=== PATIENT | female | born 1990 | race Caucasian/White ===

== ENCOUNTER 2023-01-31 18:12 | Observation (INO) ==
[2023-01-31] MEDS ORDERED: SODIUM CHLORIDE 0.9% 1000ML 1,000 ML IV ONE (18:34)
--- NOTE | 2023-01-31 18:41 | Emergency Department Note ---
History of Present Illness General Chief complaint: Abdominal Pain Stated complaint: UPPER ABDOMINAL PAIN Time Seen by Provider: 01/31/23 18:18 Source: patient, family (I talked her fianc who is also at the bedside) and RN notes reviewed Mode of arrival: ambulatory Limitations: no limitations History of Present Illness Maximum Pain Intensity: 7 This patient is a 32-year-old female comes in with upper abdominal pain. She says she woke up this morning took omeprazole and Gas-X and its persisted throughout the day got worse she points to the most of the upper abdomen but it does hurt in the lower abdomen as well. No fever occasional nausea but no vomiting or diarrhea she had some [place] food last night but said there was no GI issues otherwise and nobody else is sick. Nothing makes it better it is worse if she wears tight close. Sometimes it hurts worse with movement. No chest pain or shortness of breath. no sick contact.s she does have an IUD and denies vaginal bleeding or discharge denies pain with intercourse. no dysuria or hematuria. No trauma or injury. Home Medications Medication Instructions Recorded Confirmed Type bupropion HCl 150 mg tablet,12 hr 150 mg PO BID 01/31/23 01/31/23 History sustained-release levothyroxine 125 mcg tablet See Rx Instructions .Route .COMPLEX 01/31/23 01/31/23 History lisinopril 5 mg tablet 5 mg PO QAM 01/31/23 01/31/23 History Allergies Allergy/AdvReac Type Severity Reaction Status Date / Time No Known Allergies Allergy Unverified 01/31/23 18:20 Past Med/Surg History Medical History (Updated 01/31/23 @ 21:13 by Harpal Rahman MD) Depression Hypertension Hypothyroidism Obesity Social History Smoking Status: Never smoker Feels Safe at Home: Yes Immunizations: Past medical historydepression which he says is stable no suicidal ideations or overdose. Denies history of GI issues or surgery Social historyshe does not smoke -she quit. Does not drink alcohol. She is a nurse Review of Systems A total of 10 systems reviewed and were otherwise negative Physical Exam Vital Signs Vital Signs - 24 hr 01/31/23 18:14 01/31/23 19:43 01/31/23 20:00 Temperature 36.2 C L Temperature Source Skin Pulse Rate 102 H 101 H Pulse Rate [Finger] 84 Respiratory Rate 20 20 20 Respiratory Effort / Characteristics Non-Labored Spontaneous Non-Labored Respiratory Depth Normal Normal Respiratory Pattern Regular Regular Blood Pressure 149/85 H Blood Pressure [Left Arm] 153/91 H Blood Pressure Mean 106 Blood Pressure Mean [Left Arm] 111 Blood Pressure Position [Left Arm] Sitting Pulse Oximetry 99 99 100 Oxygen Delivery Method Room Air Room Air Room Air Sepsis Recent Fever Within 48 Hours No Sepsis New/Unexplained Change in Mental Status N/A Sepsis Action Taken by Nursing No Action Required General: Well developed well nourished young female who appears mildly uncomfortable but in no acute distress, breathing comfortably on room air. No rmal speech HEENT: Normal cephalic atraumatic. Pupils are equal round and reactive to light. Extraocular movements are intact. Oropharynx is pink with moist mucous membranes. No swelling of the mouth lips or tongue. Neck: Supple with a midline trachea. No meningeal signs or stiffness, no JVD or bruits. No Stridor. Chest: Clear to auscultation bilaterally. No wheezes or rhonchi. No increased work of breathing. Heart: Regular rate and rhythm without murmurs or gallops. Abdomen: Soft moderately tender in the right upper abdomen also centrally in the lower abdomen. She has some mild tenderness in the epigastric area. She does seem diffusely tender but more so in the areas listed .nondistended without rebound guarding or rigidity. Extremities: No cyanosis clubbing or edema. No calf tenderness or assymetry Spine/Back. Non tender to palpation. No CVA tenderness Skin: Good turgor without rashes. Neurologic exam: Nonfocal, motor and sensation are intact and symmetrical throughout. Course Administered Medications Discontinued Medications Bupivacaine HCl (Bupivacaine 0.5 % 5 Mg/1 Ml Mpf 30ml Vial) Confirm Administered Dose 30 ml .ROUTE .STK-MED ONE Stop: 01/31/23 21:14 Last Admin: 01/31/23 22:21 Dose: 10 ml Documented By: [facility] Sodium Chloride (Nss 1000ml) 1,000 mls @ 999 mls/hr IV .Q1H1M ONE Stop: 01/31/23 19:34 Last Infusion: 01/31/23 21:04 Dose: 0 mls/hr Documented By: Admin: 01/31/23 18:45 Dose: 999 mls/hr Documented By: FRANCESCO Cefoxitin Sodium 2,000 mg/ (Dextrose) 60 mls @ 100 mls/hr IV NOW STA Stop: 01/31/23 21:45 Last Admin: 01/31/23 22:00 Dose: 100 mls/hr Documented By: KRZYSZTOF Acetaminophen (Ofirmev) 1,000 mg in 100 mls @ 400 mls/hr IV NOW ONE Stop: 01/31/23 22:45 Last Admin: 01/31/23 23:52 Dose: 400 mls/hr Documented By: MARTIN Ioversol (Optiray 350 100ml) 89 ml IV ONCE ONE Stop: 01/31/23 19:44 Last Admin: 01/31/23 19:44 Dose: 89 ml Documented By: DAYTON Ketorolac Tromethamine (Ketorolac Tromethamine 15 Mg/Ml Vial) 10 mg IV NOW ONE Stop: 01/31/23 18:43 Last Admin: 01/31/23 18:46 Dose: 10 mg Documented By: MG Co-signed By: SCOTT Ondansetron HCl (Ondansetron Inj 2 Mg/Ml 2 Ml Vial) 4 mg IV NOW STA Stop: 01/31/23 18:43 Last Admin: 01/31/23 18:46 Dose: 4 mg Documented By: MG Co-signed By: SCOTT Medical Decision Making Differential Diagnosis Gallbladder disease, pancreatitis, appendicitis, , colitis, intra- abdominal process, infection, surgical disease Medical Records Attestation: I reviewed the patient's medical records. Home Medications Current Medication List: was personally reviewed by wi Laboratory Data Attestation: I reviewed the patient's lab results. 01/31/23 18:30 01/31/23 18:30 Lab Results 01/31/23 01/31/23 01/31/23 Range/Units 18:30 18:30 18:30 WBC 12.42 H (4.8-10.8) K/ul RBC 4.65 (4.20-5.40) M/uL Hgb 13.7 (12.0-16.0) g/dl Hct 40.1 (37.0-47.0) % MCV 86.2 (80.0-100.0) fL MCH 29.5 (25.0-34.0) pg MCHC 34.2 (32.0-36.0) g/dL RDW Std Deviation 39.7 (36.4-46.3) fL RDW Coeff of Ramon 12.7 (11.5-14.5) % Plt Count 237 (130-400) K/uL MPV 11.5 (9.4-12.4) fL Immature Gran % (Auto) 0.3 % Neut % (Auto) 82.1 % Lymph % (Auto) 11.9 % [place] % (Auto) 5.3 % Eos % (Auto) 0.1 % Baso % (Auto) 0.3 % Neut # (Auto) 10.19 H (1.40-6.50) K/uL Lymph # (Auto) 1.48 (1.2-3.4) K/uL [place] # (Auto) 0.66 H (0.11-0.59) K/uL Eos # (Auto) 0.01 (0-0.50) K/uL Baso # (Auto) 0.04 (0-0.2) K/uL Immature Gran # (Auto) 0.04 (0.01-0.20) K/uL Sodium 135 L (136-145) mmol/L Potassium 3.7 (3.5-5.1) mmol/L Chloride 103 (98-107) mmol/L Carbon Dioxide 27 (21-32) mmol/L Anion Gap 5 (3-11) BUN 12 (6-23) mg/dl Creatinine 0.91 (0.6-1.2) mg/dl Est Cr Clr Drug Dosing 110.8 ml/min Est GFR ( Amer) 95.4 ml/min Est GFR (Non-Af Amer) 82.3 ml/min BUN/Creatinine Ratio 13.2 (10-20) Glucose 92 (70-99(Fasting)) mg/dl Calcium 9.3 (8.5-10.1) mg/dl Total Bilirubin 0.5 (0.2-1.0) mg/dl AST 15 (13-39) U/L ALT 12 (7-52) U/L Alkaline Phosphatase 73 (34-104) U/L Total Protein 7.5 (6.0-8.3) gm/dl Albumin 4.6 (3.4-5.0) gm/dl Globulin 2.9 (2.5-4.0) gm/dl Albumin/Globulin Ratio 1.6 (0.9-2) Lipase 12 (11-82) U/L Urine Color Yellow Urine Appearance Clear (Clear) Urine pH 6.0 (4.5-7.5) Ur Specific [place] 1.010 (1.000-1.030) Urine Protein Negative (Negative) Urine Glucose (UA) Negative (Negative) Urine Ketones Trace H (Negative) Urine Blood Negative (Negative) Urine Nitrite Negative (Negative) Urine Bilirubin Negative (Negative) Urine Urobilinogen Negative (Negative) Ur Leukocyte Esterase 1+ H (Negative) Urine WBC (Auto) 10-30 H (0-5) /hpf Urine RBC (Auto) 5-10 H (0-4) /hpf U Hyaline Cast (Auto) 0 (0-5) /lpf U Epithel Cells (Auto) >30 H (0-5) /lpf Urine Bacteria (Auto) 2+ H (Negative) POC Ur Test (NEG) 01/31/23 Range/Units 18:30 WBC (4.8-10.8) K/ul RBC (4.20-5.40) M/uL Hgb (12.0-16.0) g/dl Hct (37.0-47.0) % MCV (80.0-100.0) fL MCH (25.0-34.0) pg MCHC (32.0-36.0) g/dL RDW Std Deviation (36.4-46.3) fL RDW Coeff of Ramon (11.5-14.5) % Plt Count (130-400) K/uL MPV (9.4-12.4) fL Immature Gran % (Auto) % Neut % (Auto) % Lymph % (Auto) % [place] % (Auto) % Eos % (Auto) % Baso % (Auto) % Neut # (Auto) (1.40-6.50) K/uL Lymph # (Auto) (1.2-3.4) K/uL [place] # (Auto) (0.11-0.59) K/uL Eos # (Auto) (0-0.50) K/uL Baso # (Auto) (0-0.2) K/uL Immature Gran # (Auto) (0.01-0.20) K/uL Sodium (136-145) mmol/L Potassium (3.5-5.1) mmol/L Chloride (98-107) mmol/L Carbon Dioxide (21-32) mmol/L Anion Gap (3-11) BUN (6-23) mg/dl Creatinine (0.6-1.2) mg/dl Est Cr Clr Drug Dosing ml/min Est GFR ( Amer) ml/min Est GFR (Non-Af Amer) ml/min BUN/Creatinine Ratio (10-20) Glucose (70-99(Fasting)) mg/dl Calcium (8.5-10.1) mg/dl Total Bilirubin (0.2-1.0) mg/dl AST (13-39) U/L ALT (7-52) U/L Alkaline Phosphatase (34-104) U/L Total Protein (6.0-8.3) gm/dl Albumin (3.4-5.0) gm/dl Globulin (2.5-4.0) gm/dl Albumin/Globulin Ratio (0.9-2) Lipase (11-82) U/L Urine Color Urine Appearance (Clear) Urine pH (4.5-7.5) Ur Specific [place] (1.000-1.030) Urine Protein (Negative) Urine Glucose (UA) (Negative) Urine Ketones (Negative) Urine Blood (Negative) Urine Nitrite (Negative) Urine Bilirubin (Negative) Urine Urobilinogen (Negative) Ur Leukocyte Esterase (Negative) Urine WBC (Auto) (0-5) /hpf Urine RBC (Auto) (0-4) /hpf U Hyaline Cast (Auto) (0-5) /lpf U Epithel Cells (Auto) (0-5) /lpf Urine Bacteria (Auto) (Negative) POC Ur Test NEG (NEG) Imaging Data Attestation: I personally reviewed and interpreted this imaging study as follows: My Impression: CT of the abdomen and pelvisI do not see any free air or bowel obstruction. Appendix does appear to be dilated on my interpretation Radiologist's Impression: Abdomen/Pelvis CT 01/31/23 19:23 CT SCAN OF THE ABDOMEN AND PELVIS WITH IV CONTRAST CLINICAL HISTORY: Right lower quadrant abdominal pain. COMPARISON STUDY: No priors. TECHNIQUE: Following the IV administration of 89 cc of Optiray 350, CT scan of the abdomen and pelvis is performed from the lung bases to the proximal femora. Images are reviewed in the axial, sagittal, and coronal planes. IV contrast was administered without complication. A dose lowering technique was utilized adhering to the principles of ALARA. CT DOSE: 892.10 mGy.cm FINDINGS: Lung bases: The heart is normal in size and without pericardial effusion. The lung bases are clear. Liver: The contrast-enhanced liver is normal in size, contour, and attenuation. There is no intrahepatic biliary ductal dilatation. The hepatic veins and portal veins are patent. Gallbladder: Unremarkable. Spleen: The spleen is normal in size and attenuation. A 12 mm splenic hypodensity seen on image #70 is statistically of doubtful significance. Pancreas: Unremarkable. Adrenal glands: Unremarkable. Kidneys: The contrast enhanced kidneys are normal in size and without hydronephrosis. The kidneys enhance symmetrically. A subcentimeter cortical hypodensity on the right likely represents a cyst but is too small for definitive characterization. Abdominal vasculature: The abdominal aorta is normal in course and caliber. Bowel: There is no bowel obstruction. A calcified appendicolith is seen on axial image #221. The distal appendix is dilated and fluid-filled, measuring up to 11 mm in diameter. There is periappendiceal inflammation and fluid, and findings are consistent with acute appendicitis. No organized fluid collection is seen to indicate abscess. Peritoneum: There is no intraperitoneal free air or abdominal ascites. There is a fat-containing umbilical hernia. Lymphadenopathy: None. Pelvic viscera: The bladder, uterus, and adnexa are normal as visualized noting an intrauterine device in place. There are bilateral ovarian follicles. Skeletal structures: No lytic or blastic lesions are seen. Sclerotic change is noted in the sacroiliac joints. IMPRESSION: Acute appendicitis with no CT evidence of abscess or perforation. ACT 112: Negative or not required by law. Electronically signed by: Rene Gloria M.D. 01/31/2023 7:53 PM MDM Narrative This patient comes in with abdominal pain. She is diffusely tender more so in the right upper and central lower abdomen. IV access was established and she was hydrated with normal saline. She was given Toradol 10 mg IV and Zofran 4 mg IV for pain and nausea management. Multiple blood testing was obtained. Urinalysis and test was obtained as well. She was reassessed frequently. test was negative. White count is mildly elevated in the 12 range. She has no significant anemia. She has no significant electrolyte or metabolic abnormalities. Urinalysis does not suggest a UTI. She is not . She is feeling a little better with the pain medication but still remains very tender in the right mid abdomen I did order CT with IV contrast after discussing the risk and benefit with the patient. She freely consents. CAT scan shows findings consistent with acute appendicitis with appendicolith. She has been n.p.o. she has been hydrated with normal saline. I have consulted surgery group to come see her for admission and likely appendectomy Impression & Plan Acute appendicitis, Lab test negative for COVID-19 virus, Appendicolith, Not currently Discharge Plan Visit Data Chief Complaint: Abdominal Pain Stated Complaint: UPPER ABDOMINAL PAIN ED Provider: Jaspreet Ferrer Discharge Problem: Acute appendicitis, Lab test negative for COVID-19 virus, Appendicolith, Not currently Discharge Instructions Interventions: ED Discharge Assessment Last Done: 01/31/23 21:13 Acute appendicitis Qualifiers: Acute appendicitis type: unspecified acute appendicitis type Qualified Code(s): K35.80 - Unspecified acute appendicitis
[2023-01-31] MEDS ORDERED: ONDANSETRON INJ 2 MG/ML 2 ML VIAL IV STA (18:42)
[2023-01-31] MEDS ORDERED: KETOROLAC TROMETHAMINE 15 MG/ML VIAL IV ONE (18:42)
[2023-01-31 18:55] LABS: Appearance Urine Clear (Clear); Bacteria Urine Automated 2+ (Negative); Bilirubin Urine Negative (Negative); Blood Urine Negative (Negative); Cast Urine Automated 0 /lpf (0-5); Color Urine Yellow; Epithelial Cell Urine Auto >30 /lpf (0-5); Glucose Urine UA Negative (Negative); Ketones Urine Trace (Negative); Leukocyte Esterase Urine 1+ (Negative); Nitrite Urine Negative (Negative); Protein Urine Negative (Negative); Urobilinogen Urine Negative (Negative)
[2023-01-31 18:59] LABS: Basophils # (auto) 0.04 K/uL (0-0.2); Basophils % (auto) 0.3 %; Eosinophils # (auto) 0.01 K/uL (0-0.50); Eosinophils % (auto) 0.1 %; Hematocrit (blood only) 40.1 % (37.0-47.0); Hemoglobin 13.7 g/dl (12.0-16.0); Immature Granulocytes # (auto) 0.04 K/uL (0.01-0.20); Immature Granulocytes % (auto) 0.3 %; Lymphocytes # (auto) 1.48 K/uL (1.2-3.4); Lymphocytes % (auto) 11.9 %; Mean Corpuscular Hemoglobin 29.5 pg (25.0-34.0); Mean Corpuscular Hgb Conc 34.2 g/dL (32.0-36.0); Mean Corpuscular Volume 86.2 fL (80.0-100.0); Mean Platelet Volume 11.5 fL (9.4-12.4); Monocytes # (auto) 0.66 K/uL (0.11-0.59); Monocytes % (auto) 5.3 %; Neutrophils # (auto) 10.19 K/uL (1.40-6.50); Neutrophils % (auto) 82.1 %; Platelet Count 237 K/uL (130-400); RDW Coefficient of Variation 12.7 % (11.5-14.5); RDW Standard Deviation 39.7 fL (36.4-46.3); Red Blood Count 4.65 M/uL (4.20-5.40); White Blood Count 12.42 K/ul (4.8-10.8)
[2023-01-31 19:16] LABS: Albumin Globulin Ratio 1.6 (0.9-2); Albumin Level 4.6 gm/dl (3.4-5.0); BUN Creatinine Ratio 13.2 (10-20); Bilirubin,Total 0.5 mg/dl (0.2-1.0); Calcium 9.3 mg/dl (8.5-10.1); Creatinine Clr Calc Pharmacy 110.8 ml/min; Est GFR (African American) 95.4 ml/min; Est GFR (Non-African American) 82.3 ml/min; Globulin 2.9 gm/dl (2.5-4.0); Potassium 3.7 mmol/L (3.5-5.1); Total Protein 7.5 gm/dl (6.0-8.3)
[2023-01-31] MEDS ORDERED: OPTIRAY 350 100ml IV ONE (19:43)
--- NOTE | 2023-01-31 19:55 | CT Scan Report ---
CT SCAN OF THE ABDOMEN AND PELVIS WITH IV CONTRAST CLINICAL HISTORY: Right lower quadrant abdominal pain. COMPARISON STUDY: No priors. TECHNIQUE: Following the IV administration of 89 cc of Optiray 350, CT scan of the abdomen and pelvi s is performed from the lung bases to the proximal femora. Images are reviewed in the axial, sagittal , and coronal planes. IV contrast was administered without complication. A dose lowering technique wa s utilized adhering to the principles of ALARA. CT DOSE: 892.10 mGy.cm FINDINGS: Lung bases: The heart is normal in size and without pericardial effusion. The lung bases are clear. Liver: The contrast-enhanced liver is normal in size, contour, and attenuation. There is no intrahepa tic biliary ductal dilatation. The hepatic veins and portal veins are patent. Gallbladder: Unremarkable. Spleen: The spleen is normal in size and attenuation. A 12 mm splenic hypodensity seen on image #70 i s statistically of doubtful significance. Pancreas: Unremarkable. Adrenal glands: Unremarkable. Kidneys: The contrast enhanced kidneys are normal in size and without hydronephrosis. The kidneys enh ance symmetrically. A subcentimeter cortical hypodensity on the right likely represents a cyst but is too small for definitive characterization. Abdominal vasculature: The abdominal aorta is normal in course and caliber. Bowel: There is no bowel obstruction. A calcified appendicolith is seen on axial image #221. The dist al appendix is dilated and fluid-filled, measuring up to 11 mm in diameter. There is periappendiceal inflammation and fluid, and findings are consistent with acute appendicitis. No organized fluid colle ction is seen to indicate abscess. Peritoneum: There is no intraperitoneal free air or abdominal ascites. There is a fat-containing umbi lical hernia. Lymphadenopathy: None. Pelvic viscera: The bladder, uterus, and adnexa are normal as visualized noting an intrauterine devic e in place. There are bilateral ovarian follicles. Skeletal structures: No lytic or blastic lesions are seen. Sclerotic change is noted in the sacroilia c joints. IMPRESSION: Acute appendicitis with no CT evidence of abscess or perforation. ACT 112: Negative or not required by law. Electronically signed by: Rene Gloria M.D. 01/31/2023 7:53 PM
--- NOTE | 2023-01-31 20:39 | History & Physical Report ---
Date of Service January 31, 2023 Assessment & Plan (1) Acute appendicitis: Plan: Clinical exam, history and diagnostic findings are consistent with acute appendicitis. Plan for laparoscopic appendectomy tonight. Procedure and risks were reviewed with the patient. Risks to include, but are not limited to, bleeding, infection, injury to surrounding structures, need for additional surgery. Consent for surgery will be obtained by Dr. Dee. All questions answered. History of Present Illness Primary Care Provider: Michi Manzo MD Kymberly is being seen today in the ED for evaluation of acute appendicitis. She reports mid abdominal pain that started this AM, has been getting progressively worse. Pain is now located in her RLQ. She does have some nausea and loss of appetite. She attempted one bite of toast around 4pm but felt too nauseous to eat. She tried omeprazole and Gas X for her pain, but did not get any relief. ED findings reveal leukocytosis of 12, CT findings consistent with acute appendicitis. She has PMH of HTN, hypothyroidism, depression. She did take her medications, including lisinopril, this AM. She has no previous history of abdominal surgeries. She blue snot smoke or use alcohol. CT Findings: Bowel: There is no bowel obstruction. A calcified appendicolith is seen on axial image #221. The distal appendix is dilated and fluid-filled, measuring up to 11 mm in diameter. There is periappendiceal inflammation and fluid, and findings are consistent with acute appendicitis. No organized fluid collection is seen to indicate abscess. Allergies Allergy/AdvReac Type Severity Reaction Status Date / Time No Known Allergies Allergy Unverified 01/31/23 18:20 Home Medications Medication Instructions Recorded Confirmed Type bupropion HCl 150 mg tablet,12 hr 150 mg PO BID 01/31/23 01/31/23 History sustained-release levothyroxine 125 mcg tablet See Rx Instructions .Route .COMPLEX 01/31/23 01/31/23 History lisinopril 5 mg tablet 5 mg PO QAM 01/31/23 01/31/23 History Past Med/Surg History Social History Smoking Status: Never smoker Feels Safe at Home: Yes Review of Systems All systems reviewed & are unremarkable except as noted in HPI & below Physical Exam Physical Exam: Temp Pulse Resp BP Pulse Ox O2 Del Method 36.2 C L 84 20 153/91 H 100 Room Air 01/31/23 18:14 01/31/23 20:00 01/31/23 20:00 01/31/23 20:00 01/31/23 20:00 01/31/23 20:00 Constitutional: WD/WN, vitals as above Eyes: PERRL, conjunctivae normal, anicteric sclerae Respiratory: normal respiratory effort; no respiratory distress and does not use accessory muscles Cardiovascular: RRR, no murmur, no edema Gastrointestinal (Abdomen): Inspection/Auscultation: abdomen normal to inspection and normal bowel sounds; abdomen not distended Percussion/Palpation: + abdomen tender (RLQ) and abdomen soft Musculoskeletal: no cyanosis or clubbing, extremities motor strength 5/5 Skin: no rashes, warm and dry Psychiatric: A+Ox3, euthymic affect Results & Data ([facility]) Vital Signs (Past 12 Hours) Vital Signs Temp Pulse Pulse Resp BP BP Pulse Ox 01/31/23 20:00 84 20 153/91 H 100 01/31/23 19:43 101 H 20 99 01/31/23 18:14 36.2 C L 102 H 20 149/85 H 99 O2 Del Method 01/31/23 20:00 Room Air 01/31/23 19:43 Room Air 01/31/23 18:14 Room Air Diagnostic Findings CT Abd/Pelvis: Bowel: There is no bowel obstruction. A calcified appendicolith is seen on axial image #221. The distal appendix is dilated and fluid-filled, measuring up to 11 mm in diameter. There is periappendiceal inflammation and fluid, and findings are consistent with acute appendicitis. No organized fluid collection is seen to indicate abscess. Supervising Physician Co-Signing Physician Notes Dr. Kulkarni saw the patient in the emergency room. History and physical as Denise indicates above For laparoscopic appendectomy possible open appendectomy We will proceed as soon as possible Coding Level of Care Code 81078 INT INP/OBS CARE 1/40MIN Diagnoses Acute appendicitis K35.80 Acute appendicitis type: unspecified acute appendicitis type (1) Acute appendicitis Acute appendicitis type: unspecified acute appendicitis type Qualified Code(s): K35.80 - Unspecified acute appendicitis
[2023-01-31] MEDS ORDERED: fentaNYL citrate PF 100 MCG/2 ML VIAL ONE (20:59)
[2023-01-31] MEDS ORDERED: MIDAZOLAM HCL 1 MG/ML 2ML VIAL ONE (20:59)
[2023-01-31] MEDS ORDERED: SUCCINYLCHOLINE CHLORIDE 20 MG/ML 10 ML VIAL IV ONE (21:01)
[2023-01-31] MEDS ORDERED: NEOSTIGMINE METHYLSULFATE 1 MG/ML 10ML VIAL ONE (21:01)
[2023-01-31] MEDS ORDERED: diphenhydrAMINE 50 MG/ML VIAL ONE (21:01)
[2023-01-31] MEDS ORDERED: GLYCOPYRROLATE 0.2 MG/ML VIAL ONE (21:03)
[2023-01-31] MEDS ORDERED: PROPOFOL IV EMULSION 10 MG/ML 20 ML VIAL IV ONE (21:03)
[2023-01-31] MEDS ORDERED: DEXAMETHASONE SOD INJ 4 MG/ML VIAL ONE (21:03)
[2023-01-31] MEDS ORDERED: ROCURONIUM BROMIDE 10 MG/ML 5 ML VIAL IV ONE (21:03)
[2023-01-31] MEDS ORDERED: ONDANSETRON INJ 2 MG/ML 2 ML VIAL ONE (21:03)
[2023-01-31] MEDS ORDERED: LIDOCAINE 2% MPF LOCAL 5 ML VIAL INFIL ONE (21:03)
[2023-01-31] MEDS ORDERED: cefOXitin 2,000 MG in DEXTROSE 5% 50 ML IV STA (21:10)
[2023-01-31] MEDS ORDERED: fentaNYL citrate PF 100 MCG/2 ML VIAL IV PRN (21:12)
[2023-01-31] MEDS ORDERED: ACETAMINOPHEN 1,000 MG/100 ML VIAL IV STA (21:12)
[2023-01-31] MEDS ORDERED: PROMETHAZINE HCL 6.25 MG in SODIUM CHLORIDE 0.9% 50 ML IV PRN (21:12)
[2023-01-31] MEDS ORDERED: ePHEDrine sulfate 50 MG/ML AMP IV PRN (21:12)
[2023-01-31] MEDS ORDERED: ATROPINE SULFATE 0.1 MG/ML 10ML SYR IV PRN (21:12)
[2023-01-31] MEDS ORDERED: ONDANSETRON INJ 2 MG/ML 2 ML VIAL IV PRN ×2 (21:12→23:44)
[2023-01-31] MEDS ORDERED: HYDROmorphone INJ 1 MG/ML SYRINGE IV PRN (21:12)
[2023-01-31] MEDS ORDERED: BUPIVACAINE 0.5 % 5 MG/1 ML MPF 30ML VIAL ONE (21:13)
--- NOTE | 2023-01-31 21:14 | Anesthesiology Consultation ---
Date of Service January 31, 2023 History Surgery Operation Date: 01/31/23 22:00 Proposed Procedures p Laparoscopic Appendectomy - Neri Dee MD, FACS Height/Weight Height: 5 ft 7 in Weight: 109.1 kg Allergies Allergy/AdvReac Type Severity Reaction Status Date / Time No Known Allergies Allergy Unverified 01/31/23 18:20 Medications Home Medications Medication Instructions Recorded Confirmed Last Taken bupropion HCl 150 mg tablet,12 hr 150 mg PO BID 01/31/23 01/31/23 Unknown sustained-release levothyroxine 125 mcg tablet See Rx Instructions .Route .COMPLEX 01/31/23 01/31/23 Unknown lisinopril 5 mg tablet 5 mg PO QAM 01/31/23 01/31/23 Unknown Past Medical History Medical History (Updated 01/31/23 @ 21:13 by Harpal Rahman MD) Depression Hypertension Hypothyroidism Obesity Past Surgical History breast adenoma removal. Past Anesthesia History No Hx of Anesthesia Complications and No Family Hx of Anesthesia Complications History of PONV No Hx of PONV and No Hx of Motion Sickness Social History Smoking Status: Never smoker Physical Exam Vital Signs Last Vital Signs Temp 36.2 C L 01/31/23 18:14 Pulse 84 01/31/23 20:00 Resp 20 01/31/23 20:00 BP 153/91 H 01/31/23 20:00 Pulse Ox 100 01/31/23 20:00 O2 Del Method Room Air 01/31/23 20:00 Testing Laboratory Results 01/31/23 18:30 01/31/23 18:30 Urine Color Yellow 01/31/23 18:30 Urine Appearance Clear (Clear) 01/31/23 18:30 Urine pH 6.0 (4.5-7.5) 01/31/23 18:30 Ur Specific [place] 1.010 (1.000-1.030) 01/31/23 18:30 Urine Protein Negative (Negative) 01/31/23 18:30 Urine Glucose (UA) Negative (Negative) 01/31/23 18:30 Urine Ketones Trace (Negative) H 01/31/23 18:30 Urine Nitrite Negative (Negative) 01/31/23 18:30 Ur Leukocyte Esterase 1+ (Negative) H 01/31/23 18:30 Urine WBC (Auto) 10-30 /hpf (0-5) H 01/31/23 18:30 Urine RBC (Auto) 5-10 /hpf (0-4) H 01/31/23 18:30 U Hyaline Cast (Auto) 0 /lpf (0-5) 01/31/23 18:30 U Epithel Cells (Auto) >30 /lpf (0-5) H 01/31/23 18:30 Urine Bacteria (Auto) 2+ (Negative) H 01/31/23 18:30 01/31/23 18:30 POC Ur Test NEG Other Testing CT scan abdomen: CT SCAN OF THE ABDOMEN AND PELVIS WITH IV CONTRAST CLINICAL HISTORY: Right lower quadrant abdominal pain. COMPARISON STUDY: No priors. TECHNIQUE: Following the IV administration of 89 cc of Optiray 350, CT scan of the abdomen and pelvis is performed from the lung bases to the proximal femora. Images are reviewed in the axial, sagittal, and coronal planes. IV contrast was administered without complication. A dose lowering technique was utilized adhering to the principles of ALARA. CT DOSE: 892.10 mGy.cm FINDINGS: Lung bases: The heart is normal in size and without pericardial effusion. The lung bases are clear. Liver: The contrast-enhanced liver is normal in size, contour, and attenuation. There is no intrahepatic biliary ductal dilatation. The hepatic veins and portal veins are patent. Gallbladder: Unremarkable. Spleen: The spleen is normal in size and attenuation. A 12 mm splenic hypodensity seen on image #70 is statistically of doubtful significance. Pancreas: Unremarkable. Adrenal glands: Unremarkable. Kidneys: The contrast enhanced kidneys are normal in size and without hydronephrosis. The kidneys enhance symmetrically. A subcentimeter cortical hypodensity on the right likely represents a cyst but is too small for definitive characterization. Abdominal vasculature: The abdominal aorta is normal in course and caliber. Bowel: There is no bowel obstruction. A calcified appendicolith is seen on axial image #221. The distal appendix is dilated and fluid-filled, measuring up to 11 mm in diameter. There is periappendiceal inflammation and fluid, and findings are consistent with acute appendicitis. No organized fluid collection is seen to indicate abscess. Peritoneum: There is no intraperitoneal free air or abdominal ascites. There is a fat-containing umbilical hernia. Lymphadenopathy: None. Pelvic viscera: The bladder, uterus, and adnexa are normal as visualized noting an intrauterine device in place. There are bilateral ovarian follicles. Skeletal structures: No lytic or blastic lesions are seen. Sclerotic change is noted in the sacroiliac joints. IMPRESSION: Acute appendicitis with no CT evidence of abscess or perforation.
[2023-01-31] MEDS ORDERED: oxyCODONE HCL IR 5 MG TAB (IMMEDIATE RELEASE) PO PRN ×2 (22:31→23:44)
[2023-01-31] MEDS ORDERED: ACETAMINOPHEN 1,000 MG/100 ML VIAL IV ONE (22:31)
--- NOTE | 2023-01-31 22:31 | Post Operative Brief Note ---
PG Immediate Post Op with CF Date of Surgery January 31, 2023 Pre & Post Diagnosis Operation Date: 01/31/23 22:00 Pre-Op Diagnosis: Acute appendicitis Post-Op Diagnosis: Acute appendicitis I identified the patient and participated in the time-out.: Yes Procedure Operation Date: 01/31/23 22:00 Actual Procedures p Laparoscopic Appendectomy - Neri Dee MD, FACS Surgeon Neri Dee MD, FACS [employer] Machine Operator Fernando Lord Estimated Blood Loss 5 Findings Consistent with Post-Op Diagnosis Acute appendicitis with no abscess or cloudy fluid Specimens Specimen Description: A: Appendix
--- NOTE | 2023-01-31 22:59 | Anesthesiology Progress Note ---
Date of Service January 31, 2023 Anesthesia Post Procedure Vital Signs Vital Signs: Temp Pulse Pulse Resp BP BP Pulse Ox 01/31/23 22:45 36.9 C 64 15 125/78 100 01/31/23 20:00 84 20 153/91 H 100 01/31/23 19:43 101 H 20 99 01/31/23 18:14 36.2 C L 102 H 20 149/85 H 99 O2 Del Method O2 Flow Rate 01/31/23 22:45 Oxymask 7 01/31/23 20:00 Room Air 01/31/23 19:43 Room Air 01/31/23 18:14 Room Air Pain Intensity Right Upper Abdomen: Pain Intensity: 4 Transfer of Care Handoff Completed per policy Notes Mental Status: alert / awake / arousable and participated in evaluation Patient Amnestic to Procedure: Yes Nausea / Vomiting: adequately controlled Pain: adequately controlled Airway Patency, RR, SpO2: stable & adequate BP & HR: stable & adequate Hydration State: stable & adequate Anesthetic Complications: no major complications apparent and Pt Satisfied with anesthetic care
[2023-01-31] MEDS ORDERED: HYDROmorphone INJ 0.5 MG/0.5 ML SYR IV PRN (23:44)
[2023-01-31] MEDS ORDERED: ACETAMINOPHEN 325 MG TAB PO PRN (23:44)
[2023-01-31] MEDS ORDERED: IBUPROFEN 600 MG TAB PO PRN (23:44)
--- NOTE | 2023-02-01 01:01 | Operative Report (OR) ---
DATE OF OPERATION: 01/31/2023. NAME OF OPERATION: Laparoscopic appendectomy. PREOPERATIVE DIAGNOSIS: Acute appendicitis. POSTOPERATIVE DIAGNOSIS: Acute appendicitis. STAFF SURGEON: Neri Dee MD. ANESTHESIA: General. FIRST BREAKER FEEDER: Lm Lord DESCRIPTION OF PROCEDURE: The patient was brought in the operating room, placed on the operating table in supine position. My printing assistant helped with prepping, draping, removal of appendix and closure of the wounds. 0.5% plain Marcaine was used to anesthetize all incisions. Incision was made above the umbilicus, carrying dissection down through significant adipose tissue to the fascia, placing a Veress needle producing pneumoperitoneum. An 11-mm port placed at this level under visualization, 5-mm port placed suprapubically and a 12-mm port placed in left lower quadrant. The patient's appendix was retrocecal. It was adherent. The base of the appendix was identified. It was transected using Endo-JUDIT stapler. Then, using 2 additional loads, we were able to dissect the appendix out of the retroperitoneum and placed it into an Endobag. The Endobag was removed through the 12-mm port site. The port was placed back in, irrigation, hemostasis was maintained. All ports were removed. Fascia at the umbilicus and left lower quadrant closed using 0 Vicryl suture. The skin was reapproximated using subcuticular 4-0 Monocryl with Dermabond at the umbilicus and 5-mm port site and then Steri-Strips left lower quadrant. The patient was transferred to recovery room in stable condition. Job ID: [id number] [facility]
[2023-02-01] MEDS ORDERED: lisinopril 5 MG TAB PO SCH (09:00)
--- NOTE | 2023-02-02 15:08 | Discharge Summary (DS) ---
DATE OF ADMISSION: 01/31/2023. DATE OF DISCHARGE: 02/01/2023. HISTORY OF PRESENT ILLNESS: The patient is a 32-year-old female presenting to the emergency room on 01/31/2023 with abdominal pain and found on CAT scan to have acute appendicitis. She was taken to [facility] operating room on 01/31/2023, where she underwent laparoscopic appendectomy. She was kept overnigh t and discharged the following day to be followed in the surgical office. Job ID: [id number]
== END 2023-02-01 12:52 | disposition home or self-care (01) | DRG 343 ==
LOC: ED 18:12 → OR 21:11 → 3N 22:31 → INTOOBSV 22:31